=== PATIENT | male | born 1975 | race Caucasian/White ===

== ENCOUNTER → 2023-07-14 | Outpatient (CLI) | payer OTHER ==
--- NOTE | 2023-07-14 15:39 | XR ---
EXAMINATION TYPE: XR hand complete 3 views LT DATE OF EXAM: 07/14/2023 Comparison: None Clinical History: 47-year-old male metal foreign body, pain, S60.450A Findings: There is a 3 mm metallic foreign body within the radial sided palmar soft tissues at the level of the second MCP joint. Very mild early degenerative spurring first CMC and triscaphe joints. No acute fra cture, subluxation, dislocation. Impression: 3 mm metallic foreign body within the radial and palmar sided soft tissues at the level of the second MCP joint. No underlying acute osseous abnormality seen.
== END | disposition home or self-care (01) ==
LOC: RADXRMAIN 14:55
PROVIDERS: ATTEND Emergency Medicine
DX: S60.451A Superficial foreign body of left index finger, initial encounter (principal); X58.XXXA Exposure to other specified factors, initial encounter

== ENCOUNTER → 2024-01-09 | Outpatient (CLI) | payer OTHER ==
--- NOTE | 2024-01-09 16:03 | XR ---
EXAMINATION TYPE: XR hand complete 3 views LT DATE OF EXAM: 01/09/2024 Comparison: 07/14/2023 Clinical History: 48-year-old male S60.552A SUPERFICIAL FOREIGN BODY OF LEFT HAND, IN. Pain, redness, and swelling left third MCP Findings: There is an old punctate metal fragment embedded in the radial sided soft tissues at the base of the index finger. However, there is a new 3 mm metallic fragment in the dorsal soft tissues at the level of the third metacarpal head. Some associated soft tissue swelling. Mild degenerative spurring at the first CMC joint and triscaphe joint. No acute fracture, subluxation, dislocation seen. Impression: New 3 mm metal fragment embedded in the dorsal soft tissues at the level of the third metacarpal head . Associated soft tissue swelling. Old retained metal debris radial aspect at the base of the index finger. No acute osseous abnormality seen.
== END | disposition home or self-care (01) ==
LOC: RADXRMAIN 15:14
PROVIDERS: ATTEND Emergency Medicine
DX: S60.552A Superficial foreign body of left hand, initial encounter (principal); X58.XXXA Exposure to other specified factors, initial encounter

== ENCOUNTER → 2024-09-13 | Outpatient (CLI) | payer OTHER ==
--- NOTE | 2024-09-13 15:15 | XR ---
EXAMINATION TYPE: XR hand complete LT DATE OF EXAM: 09/13/2024 3:07 PM COMPARISON: Previous radiograph 01/09/2024. CLINICAL INDICATION: Male, 49 years old with history of S61.402A UNSPECIFIED OPEN WOUND OF LEFT HAND, INIT; [facility] TECHNIQUE: XR hand complete LT Frontal, lateral and oblique views were obtained. FINDINGS: No acute fracture or dislocation. Tiny 2 mm indeterminate with a foreign body adjacent to the first m etacarpophalangeal joint along the radial aspect, present on prior study. Additional new indeterminat e small round opaque foreign body adjacent to the first carpometacarpal joint, new from prior study. No evidence of focal osseous erosion or aggressive periosteal reaction. IMPRESSION: 1. No acute osseous abnormality. Specifically, no focal osseous erosion or periosteal reaction to calle ggest acute osteomyelitis. 2. New radiopaque 2 mm density adjacent to the first carpal metacarpal joint. 3. Similar-appearing 2-3 mm radiopaque density adjacent to the first metacarpophalangeal joint as ab ove. [facility], , 09/13/2024 3:12 PM
== END | disposition home or self-care (01) ==
LOC: RADXRMAIN 14:46
PROVIDERS: ATTEND Emergency Medicine
DX: S61.402A Unspecified open wound of left hand, initial encounter (principal)